=== PATIENT | female | born 1960 | race Caucasian/White ===

== ENCOUNTER → 2017-07-18 16:40 | Outpatient (CLI) | payer OTHER, SELFPAY ==
--- NOTE | 2017-07-18 16:45 | RAD_ITS ---
STUDY: X-RAY - LEFT HAND, ATTENTION SECOND FINGER REASON FOR EXAM: Female, 56 years old. Mucinous cyst TECHNIQUE: view(s) of the finger were obtained. COMPARISON: None. FINDINGS: Normal metacarpal head. Normal metacarpophalangeal joint. Normal proximal phalanx. Normal middle phalanx. Normal distal phalanx. Normal proximal interphalangeal joint. Normal distal interphalangeal joint. RAD/Finger(s) Min 2 Views IMPRESSION: Normal x-ray examination of the finger. Electronically Signed: Curtis Metzger DO at 21:34 EST Tel [phone], Service support ,
== END ==
PROVIDERS: Family Provider Family Medicine; PCP Family Medicine; Visit Provider Surgery
DX: M67.442 Ganglion, left hand (principal)
CPT/HCPCS: 73140

== ENCOUNTER 2017-08-01 06:24 | Day surgery (SDC) | payer OTHER, SELFPAY ==
--- NOTE | 2017-07-31 16:07 | PCM.HP.BLA ---
History and Physical Date of Admission: 08/01/17 HISTORY OF PRESENT ILLNESS 56 year old woman presents with a soft tissue mass on her left index finger at the DIP joint that has increased in size over the last several months and has become more raised in configuration. It is clinically consistent with a mucous cyst. She denies any trauma. She denies any fever. She denies any numbness. She denies any drainage or recent infection. There is some discomfort when she bumps it. PAST MEDICAL HISTORY Negative. PAST SURGICAL HISTORY . MEDICATIONS Estradiol. Medroxyprogesterone. ALLERGIES Augmentin. SOCIAL HISTORY Patient does not smoke. Patient does not drink alcohol. FAMILY HISTORY Arthritis - Father. Hypertension - Father and Mother. Lung cancer - Mother. Skin cancer - Father. Stroke - Father. Thyroid disease - Mother. REVIEW OF SYSTEMS General - Denies fever, fatigue, and weight loss. ENT - Denies nasal congestion and sore throat. Eyes - Denies cataracts and glaucoma. Endocrine - Denies excessive thirst and urination. Skin - Has family history of skin cancer. Has enlarging mucous cyst ulnar aspect DIP joint left index finger. Musculoskeletal - Denies joint pain, joint stiffness, weakness of muscles and joints, back pain, and arthritis. Has enlarging mucous cyst ulnar aspect DIP joint left index finger. Neuro - Denies headaches. Cardiovascular - Denies chest pain, shortness of breath with exertion, and fatigue. Psych - Denies anxiety and depression. Respiratory - Denies shortness of breath and cough. Gastrointestinal - Denies nausea, vomiting, diarrhea. Has constipation. Hematologic - Denies abnormal bruising and bleeding. Genitourinary - Denies hematuria and urinary frequency. PHYSICAL EXAMINATION General - Alert and oriented. HEENT - PERRL. EOMI. Throat is clear. Neck - Supple and nontender. No cervical adenopathy. Lungs - Clear to auscultation. Heart - Regular rate and rhythm. Abdomen - Soft and nondistended. Extremities - FROM. Radial pulses are palpable. No axillary adenopathy. On the ulnar aspect DIP joint left index finger is a 7 mm soft tissue mass, (mucous cyst), that is raised in configuration. Overlying skin is thin. No evidence of infection. No nail grooving seen. Flexion and extension intact at DIP joint left index finger. Fingers are warm with good capillary refill. Neuro - CN II - XII grossly intact. ASSESSMENT 1. 7 mm mucous cyst ulnar aspect DIP joint left index finger. 2. Family history of skin cancer. PLAN Xray showed no bony abnormalities. Recommend excision of this mucous cyst which can be done under [facility] anesthesia on an outpatient basis. Sometimes the cyst extends between the extensor tendon and the bone. Usually a bony spur is present which will be excised to minimize recurrence. Will send tissue to Pathology for analysis to rule out carcinoma. Doubt I will be able to close the wound primarily as the overlying skin is thin and will be excised. Cannot place a skin graft over exposed bone and tendon. So an advancement skin flap from the dorsal aspect of the skin of the finger will be used for reconstruction. Depending on how much retraction is necessary on the extensor tendon to get exposure to the rest of the mucous cyst, a short term use of a splint keeping the DIP joint in extension is necessary to minimize possible rupture of the tendon over the next several weeks. Depending on the amount of stiffness after the surgery, OT may be necessary to help with range of motion exercises to minimize stiffness. Patient was informed of the risks and complications of the procedure including alternatives to surgery. These were discussed with her personally. She voices understanding and wishes to proceed. Some of the risks and complications were included in a form from the [employer]. Some of the risks that were discussed included but were not inclusive of failure to diagnose including symptom relief, pain, infection, numbness, stiffness, loss of digit, RSD, need for further surgery, contracture and wound healing problems.
--- NOTE | 2017-08-01 | CYST_PTH ---
PATIENT: FRANCO [place] [facility] [place][id number] AGE/SX: 56/F ROOM: RE08/01/[address]: Dr. Eugenio Montilla MD : 1960 BED: DIS: 08/01/2017 SPEC #: [id number] RECD: 08/01/17 10:39 STATUS: JC PA #: [id number] MOOSE: 08/01/17 00:[address]: Eugenio Montilla DEPT: SURGICAL PATHOLOGY RECD BY: Arturo Ervin ENTERED: 08/01/17 10:39 SP TYPE: Cyst OTHR DR: Dr. Alex Richardson DO Tissues: Finger, NOS Procedures: Surgery Specimen Level IV HEADER OPERATION: Excision, mucous cyst, index finger with skin flap reconstruction PRE-OP DIAGNOSIS: Mucous cyst left index finger TISSUE SUBMITTED: Mucous cyst left index finger MICROSCOPIC DIAGNOSIS Mucous cyst of left index finger, excision: Benign fibrous wall cyst. Skin with hyperkeratosis. Fragments of hyaline cartilage with no pathologic change. AM:olya 08/02/17 COMMENT Case has been reviewed in consultation with Dr. Burgess who concurs with the above diagnosis. IDC:BELL MICROSCOPIC DESCRIPTION Slides are reviewed. GROSS DESCRIPTION Received in fixative is one container labeled with the patient's name and designated mucous cyst left index finger. The specimen consists of a piece of skin measuring 1.5 x 0.5 x 0.3 cm. The skin piece is bisected and shows a cyst measuring 0.4 cm in greatest dimension. Also present in the container are multiple fragments of mucoid tissue measuring in aggregate 1 x 0.5 x 0.2 cm. The entire specimen is submitted in one cassette. / BELL:olya 08/01/17 TC:5 CPT: 65239
[2017-08-01 06:44] VITALS: BP 142/78; PULSE 76; RESP 16; TEMP 36.5; O2SAT 100; BMI 23.0
[2017-08-01] MEDS: Cefazolin 2 GM in 0.9% Normal Saline 100 ML IV (08:06)
[2017-08-01] MEDS: Mupirocin Ointment 22gm Tube 1 APPLIC (09:11)
--- NOTE | 2017-08-01 09:21 | OP.PN_ITS ---
Immediate Post-Op Note Date of Procedure: 08/01/17 Primary Surgeon/Physician: Eugenio Montilla electrical design technician: None Pre-Operative Diagnosis: 1. 7 mm mucous cyst ulnar aspect DIP joint left index finger. 2. Family history of skin cancer. Post-Operative Diagnosis: 1. 7 mm mucous cyst ulnar aspect DIP joint left index finger. 2. 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 3. Family history of skin cancer. Surgery/Procedure Performed:: 1. Excision 7 mm mucous cyst ulnar aspect DIP joint left index finger with dorsal advancement skin flap reconstruction (7.5 cm2). 2. Complex repair extensor tendon distal insertion attenuation mallet deformity (zone 1) with ulnar lateral band segmental tendon turnover flap graft reconstruction and extension splinting. Description of Surgical Findings:: 56 year old woman presents with a soft tissue mass on her left index finger at the DIP joint that has increased in size over the last several months and has become more raised in configuration. It is clinically consistent with a mucous cyst. She denies any trauma. She denies any fever. She denies any numbness. She denies any drainage or recent infection. There is some discomfort when she bumps it. It was noted that during the surgery, the patient had an extensor tendon distal insertion attenuation mallet deformity (zone 1) left index finger secondary to pressure from the mucous cyst. Today the patient underwent excision 7 mm mucous cyst ulnar aspect DIP joint left index finger with dorsal advancement skin flap reconstruction (7.5 cm2) and complex repair extensor tendon distal insertion attenuation mallet deformity (zone 1) with ulnar lateral band segmental tendon turnover flap graft reconstruction and extension splinting. There was an extensor tendon distal insertion attenuation mallet deformity ( zone 1) left index finger secondary to pressure from the mucous cyst. Total tourniquet time - 41 minutes. Estimated Blood Loss: 2 ml. Specimen's removed: Mucous cyst ulnar lateral DIP joint left index finger to Pathology. Drains: None. Type of Anesthesia:: Local MAC - Xylocaine with epinephrine digital metacarpal block and IV sedation. - Admit VTE Documentation VTE Present on Admission: No VTE Mechan Device Prophylaxis: SCD's VTE Pharm Prophylaxis ordered?: No
[2017-08-01 09:26] VITALS: BP 109/66; BP 142/78; PULSE 84; RESP 16; TEMP 36.2; O2SAT 95
[2017-08-01 09:31] VITALS: BP 109/70; BP 142/78; PULSE 80; RESP 16; O2SAT 96
--- NOTE | 2017-08-01 09:32 | PCM.DC ---
You will use the following diet at home:: No restrictions Discharge Activity: May not drive while taking narcotic pain medications., May Shower - wear plastic bag over left hand when showering., - - elevate left hand. no lifting with left hand. May shower in (days): 1 - wear plastic bag over left hand when showering. May resume sexual activity in: No Restrictions Weight Bearing Status: Weight bearing as tolerated Lifting Restrictions: no lifting with left hand. Keep extremity elevated above heart level: Left Arm Call your doctor if your incision/area has: Continuous Slow Oozing, Sudden Increased Bleeding, Increased Pain/ Swelling, Increased Redness, Foul Smelling Discharge, Swelling at the incision site Call your doctor if you observe: Fever of 101 or Higher, Coldness, Increased Pain, Shortness of breath, Chest pain, Calf discomfort, Uncontrolled pain Suture Line Care: - - after dressing removed in the office, apply antibiotic ointment to suture line daily. Remove Dressing in (days):: 7 - will remove dressing in office. Cleanse incision/area with: - - wear plastic bag over left hand when showering. Additional Instructions: Will set up appointment with OT for a silastic splint and after tendon healing, range of motion exercises, strengthening, and edema managment. Allergies/Adverse Reactions: Allergies amoxicillin [From Augmentin] Adverse Reaction (Verified 07/25/17 08:25) Nausea/Vom/Diarrhea clavulanic acid [From Augmentin] Adverse Reaction (Verified 07/25/17 08:25) Nausea/Vom/Diarrhea Medications to take at Discharge estradiol 0.5 mg tablet 0.5 mg PO QODAY 07/01/17 medroxyprogesterone 2.5 mg tablet 2.5 mg PO QODAY 07/01/17 Mv-Min/Iron/Folic/Calcium/Vitk [Women's Daily Formula Tablet] 1 each PO DAILY 07/25/17 Clindamycin HCl [Cleocin] 300 mg PO TID #15 cap 08/01/17 Oxycodone HCl/Acetaminophen [Percocet 5/325] 1 - 2 tab PO 4X/DAY PRN PRN 5 Days #40 tab 08/01/17 The following prescriptions were given: Oxycodone HCl/Acetaminophen [Percocet 5/325] 1 - 2 tab PO 4X/DAY PRN PRN 5 Days #40 tab PRN Reason: Pain Clindamycin HCl [Cleocin] 300 mg PO TID #15 cap Primary Care Physician: Alex Richardson DO [Primary Care Provider] - Please Follow Up With: Eugenio Montilla MD When: one week. call [phone] for appt. Please Follow Up With: occupational therapy When: one week. will call for appt for a silastic splint. Proposed Discharge Date: 08/01/17
[2017-08-01 09:36] VITALS: BP 109/65; BP 142/78; PULSE 74; RESP 16; O2SAT 96
[2017-08-01 09:41] VITALS: BP 109/67; BP 142/78; PULSE 80; RESP 16; TEMP 36.7; O2SAT 96
--- NOTE | 2017-08-01 09:43 | DCINST_ITS ---
You will use the following diet at home:: No restrictions Discharge Activity: May not drive while taking narcotic pain medications., May Shower - wear plastic bag over left hand when showering., - - elevate left hand. no lifting with left hand. May shower in (days): 1 - wear plastic bag over left hand when showering. May resume sexual activity in: No Restrictions Weight Bearing Status: Weight bearing as tolerated Lifting Restrictions: no lifting with left hand. Keep extremity elevated above heart level: Left Arm Call your doctor if your incision/area has: Continuous Slow Oozing, Sudden Increased Bleeding, Increased Pain/ Swelling, Increased Redness, Foul Smelling Discharge, Swelling at the incision site Call your doctor if you observe: Fever of 101 or Higher, Coldness, Increased Pain, Shortness of breath, Chest pain, Calf discomfort, Uncontrolled pain Suture Line Care: - - after dressing removed in the office, apply antibiotic ointment to suture line daily. Remove Dressing in (days):: 7 - will remove dressing in office. Cleanse incision/area with: - - wear plastic bag over left hand when showering. Additional Instructions: Will set up appointment with OT for a silastic splint and after tendon healing, range of motion exercises, strengthening, and edema managment. Allergies/Adverse Reactions: Allergies amoxicillin [From Augmentin] Adverse Reaction (Verified 07/25/17 08:25) Nausea/Vom/Diarrhea clavulanic acid [From Augmentin] Adverse Reaction (Verified 07/25/17 08:25) Nausea/Vom/Diarrhea Medications to take at Discharge estradiol 0.5 mg tablet 0.5 mg PO QODAY 07/01/17 medroxyprogesterone 2.5 mg tablet 2.5 mg PO QODAY 07/01/17 Mv-Min/Iron/Folic/Calcium/Vitk [Women's Daily Formula Tablet] 1 each PO DAILY Clindamycin HCl [Cleocin] 300 mg PO TID #15 cap 08/01/17 Oxycodone HCl/Acetaminophen [Percocet 5/325] 1 - 2 tab PO 4X/DAY PRN PRN 5 Days #40 tab 08/01/17 The following prescriptions were given: Oxycodone HCl/Acetaminophen [Percocet 5/325] 1 - 2 tab PO 4X/DAY PRN PRN 5 Days #40 tab PRN Reason: Pain Clindamycin HCl [Cleocin] 300 mg PO TID #15 cap Primary Care Physician: Alex Richardson DO [Primary Care Provider] - Please Follow Up With: Eugenio Montilla MD When: one week. call [phone] for appt. Please Follow Up With: occupational therapy When: one week. will call for appt for a silastic splint. Proposed Discharge Date: 08/01/17
[2017-08-01 10:58] VITALS: BP 142/78
--- NOTE | 2017-08-01 16:55 | PCM.OPRPT ---
Report of Operation Date of Procedure: 08/01/17 Pre-Operative Diagnosis: 1. 7 mm mucous cyst ulnar aspect DIP joint left index finger. 2. Family history of skin cancer. Post-Operative Diagnosis: 1. 7 mm mucous cyst ulnar aspect DIP joint left index finger. 2. 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 3. Family history of skin cancer. Surgery/Procedure Performed:: 1. Excision 7 mm mucous cyst ulnar aspect DIP joint left index finger with dorsal advancement skin flap reconstruction (7.5 cm2). 2. Complex repair extensor tendon distal insertion attenuation mallet deformity (zone 1) with ulnar lateral band segmental tendon turnover flap graft reconstruction and extension splinting. Description of Surgical Findings:: 56 year old woman presents with a soft tissue mass on her left index finger at the DIP joint that has increased in size over the last several months and has become more raised in configuration. It is clinically consistent with a mucous cyst. She denies any trauma. She denies any fever. She denies any numbness. She denies any drainage or recent infection. There is some discomfort when she bumps it. Patient was informed of the risks and complications of the procedure including alternatives to surgery. These were discussed with her personally. She voices understanding and wishes to proceed. Some of the risks and complications were included in a form from the [employer]. Some of the risks that were discussed included but were not inclusive of failure to diagnose including symptom relief, pain, infection, numbness, stiffness, loss of digit, RSD, need for further surgery, contracture and wound healing problems. There was an extensor tendon distal insertion attenuation mallet deformity (zone 1) left index finger secondary to pressure from the mucous cyst. Total tourniquet time - 41 minutes. crucible packer: None Type of Anesthesia:: Local MAC - Xylocaine with epinephrine digital metacarpal block and IV sedation. Specimen's removed: Mucous cyst ulnar lateral DIP joint left index finger to Pathology. Drains: None. Estimated Blood Loss (mL): 2 ml. Description of Procedure: The patient was taken to the operating room and in the supine position, she was given IV sedation and her left hand and forearm were prepped and draped in usual fashion. SCDs were placed for DVT prophylaxis. Perioperative antibiotics were given intravenously. Using xylocaine with epinephrine, a local digital metacarpal block was administered to the left index finger. After waiting 5 minutes for the anesthetic to take effect, a tourniquet was applied to the base of the left index finger. I made a circular incision around the mucous cyst which was slightly firm. The overlying skin was quite thin which was excised as well. I extended the incision horizontally toward the radial side of the finger. I dissected the mucous cyst down to the bone on the ulnar aspect. It was excised and sent to Pathology for analysis to rule out carcinoma. There was a small bony spur present and a rongeur was used to remove this small spur which will help minimize recurrence. Due to the pressure from the mucous cyst, there was an extensor tendon distal insertion attenuation mallet deformity (zone 1), mostly on the ulnar side. There was a small area of tendon remaining on the distal phalanx. There was a small tendon gap on the ulnar aspect probably from pressure of the mucous cyst on the underlying tendon. To repair the ulnar tendon gap, I created a lateral band segmental tendon turnover flap to be used as a tendon graft for the reconstruction. I extended the incision down the dorsal ulnar aspect of the finger and dissected down to the extensor tendon to get exposure for the lateral band segmental tendon turnover flap graft. This would provide me with the necessary additional tendon length to obtain tendon continuity on the ulnar side. This was done and repaired using a 4-0 nylon [id number] interrupted sutures. The PIP joint was not involved as I was able to extend and flex the PIP joint without difficulty. After the dorsal skin flap was elevated, it was advanced distally into the mucous cyst defect. The incisions were closed with 5-0 Prolene simple interrupted and vertical mattress interrupted sutures. The size of the flap used to close the defect was 1.5 x 5 cm or 7.5 cm2. During the closure of the skin flap, I released the tourniquet after 41 minutes. Hemostasis obtained with light electrocautery and elevation and gentle pressure. No vascular compromise noted on the skin flap after release of the tourniquet. After closure of the skin flap, I applied antibiotic ointment to the incision followed by Xeroform gauze and 2x2 gauze. An aluminum extension splint was applied to the DIP joint and covered with a 2 inch Liya wrap. Patient tolerated the procedure well and was sent to PACU in satisfactory condition. She will be sent home on antibiotics and pain medication. She will keep her left hand elevated during the initial postop period. She will followup in a week for a wound check and discussion of the Pathology report. Will set her up with OT for a silastic extension splint and for eventual range of motion exercises, strengthening, and edema management. Will remove her sutures in 2 weeks. Grafts/Implants Used: Aluminum extension splint at DIP joint. - Complications None. - Admit VTE Documentation VTE Present on Admission: No VTE Mechan Device Prophylaxis: SCD's VTE Pharm Prophylaxis ordered?: No Code Visit Surgery Charges CPT - 85491 ICD-10 - M67.442, S61.402A, M20.012 72455 S61.402A, M67.442, M20.012 52202 M20.012, S61.402A, M67.442
--- NOTE | 2017-08-02 16:55 | OP.PCM_ITS ---
Report of Operation Date of Procedure: 08/01/17 Pre-Operative Diagnosis: 1. 7 mm mucous cyst ulnar aspect DIP joint left index finger. 2. Family history of skin cancer. Post-Operative Diagnosis: 1. 7 mm mucous cyst ulnar aspect DIP joint left index finger. 2. 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 3. Family history of skin cancer. Surgery/Procedure Performed:: 1. Excision 7 mm mucous cyst ulnar aspect DIP joint left index finger with dorsal advancement skin flap reconstruction (7.5 cm2). 2. Complex repair extensor tendon distal insertion attenuation mallet deformity (zone 1) with ulnar lateral band segmental tendon turnover flap graft reconstruction and extension splinting. Description of Surgical Findings:: 56 year old woman presents with a soft tissue mass on her left index finger at the DIP joint that has increased in size over the last several months and has become more raised in configuration. It is clinically consistent with a mucous cyst. She denies any trauma. She denies any fever. She denies any numbness. She denies any drainage or recent infection. There is some discomfort when she bumps it. Patient was informed of the risks and complications of the procedure including alternatives to surgery. These were discussed with her personally. She voices understanding and wishes to proceed. Some of the risks and complications were included in a form from the [employer]. Some of the risks that were discussed included but were not inclusive of failure to diagnose including symptom relief, pain, infection, numbness, stiffness, loss of digit, RSD, need for further surgery, contracture and wound healing problems. There was an extensor tendon distal insertion attenuation mallet deformity ( zone 1) left index finger secondary to pressure from the mucous cyst. Total tourniquet time - 41 minutes. loft worker pile driving: None Type of Anesthesia:: Local MAC - Xylocaine with epinephrine digital metacarpal block and IV sedation. Specimen's removed: Mucous cyst ulnar lateral DIP joint left index finger to Pathology. Drains: None. Estimated Blood Loss (mL): 2 ml. Description of Procedure: The patient was taken to the operating room and in the supine position, she was given IV sedation and her left hand and forearm were prepped and draped in usual fashion. SCDs were placed for DVT prophylaxis. Perioperative antibiotics were given intravenously. Using xylocaine with epinephrine, a local digital metacarpal block was administered to the left index finger. After waiting 5 minutes for the anesthetic to take effect, a tourniquet was applied to the base of the left index finger. I made a circular incision around the mucous cyst which was slightly firm. The overlying skin was quite thin which was excised as well. I extended the incision horizontally toward the radial side of the finger. I dissected the mucous cyst down to the bone on the ulnar aspect. It was excised and sent to Pathology for analysis to rule out carcinoma. There was a small bony spur present and a rongeur was used to remove this small spur which will help minimize recurrence. Due to the pressure from the mucous cyst, there was an extensor tendon distal insertion attenuation mallet deformity (zone 1), mostly on the ulnar side. There was a small area of tendon remaining on the distal phalanx. There was a small tendon gap on the ulnar aspect probably from pressure of the mucous cyst on the underlying tendon. To repair the ulnar tendon gap, I created a lateral band segmental tendon turnover flap to be used as a tendon graft for the reconstruction. I extended the incision down the dorsal ulnar aspect of the finger and dissected down to the extensor tendon to get exposure for the lateral band segmental tendon turnover flap graft. This would provide me with the necessary additional tendon length to obtain tendon continuity on the ulnar side. This was done and repaired using a 4-0 nylon [id number] interrupted sutures. The PIP joint was not involved as I was able to extend and flex the PIP joint without difficulty. After the dorsal skin flap was elevated, it was advanced distally into the mucous cyst defect. The incisions were closed with 5-0 Prolene simple interrupted and vertical mattress interrupted sutures. The size of the flap used to close the defect was 1.5 x 5 cm or 7.5 cm2. During the closure of the skin flap, I released the tourniquet after 41 minutes. Hemostasis obtained with light electrocautery and elevation and gentle pressure. No vascular compromise noted on the skin flap after release of the tourniquet. After closure of the skin flap, I applied antibiotic ointment to the incision followed by Xeroform gauze and 2x2 gauze. An aluminum extension splint was applied to the DIP joint and covered with a 2 inch Liya wrap. Patient tolerated the procedure well and was sent to PACU in satisfactory condition. She will be sent home on antibiotics and pain medication. She will keep her left hand elevated during the initial postop period. She will followup in a week for a wound check and discussion of the Pathology report. Will set her up with OT for a silastic extension splint and for eventual range of motion exercises, strengthening, and edema management. Will remove her sutures in 2 weeks. Grafts/Implants Used: Aluminum extension splint at DIP joint. - Complications None. - Admit VTE Documentation VTE Present on Admission: No VTE Mechan Device Prophylaxis: SCD's VTE Pharm Prophylaxis ordered?: No Code Visit Surgery Charges CPT - 07533 ICD-10 - M67.442, S61.402A, M20.012 82799 S61.402A, M67.442, M20.012 41484 M20.012, S61.402A, M67.442
== END 2017-08-01 11:38 | disposition home or self-care (01) ==
LOC: SDC 06:25 → AC 06:26
PROVIDERS: Family Provider Student in an Organized Health Care Education/Training Program; PCP Student in an Organized Health Care Education/Training Program; Visit Provider Surgery
PROC: (CPT 14040; principal; 2017-08-01 07:50)
DX: M67.442 Ganglion, left hand (principal); M20.012 Mallet finger of left finger(s); M25.742 Osteophyte, left hand; Z80.8 Family history of malignant neoplasm of other organs or systems
CPT/HCPCS: 14040; 26160; 26434; 64450; 88304; 88305; J7120

== ENCOUNTER 2017-11-14 14:00 | Outpatient (RCR) | payer OTHER, SELFPAY ==
--- NOTE | 2017-08-07 11:29 | HP.OTEVAL_ITS ---
Patient's Visit Information FRANCO HI is a 56 year old F, referred to Occupational Therapy by Eugenio Montilla DR.JSMAL, with a diagnosis of Cyst left IF. Date of Evaluation: 08/06/17 Occupational Therapist: Sabina Reveles, AYAAN/Renetta, CHT - Subjective Subjective: pt states she had a cyst- removed on 08-01-17. pt states the cyst has been there for greater than 3 months. pt states she is attempting to stay up with her pain medication- pt states stitches will be removed this week. pt state she is not using her hand much as she is attempting to keep her MF protected while peforming BADLS and IALDS - Pain left IF 4 Pain Intensity Range: 1, 8 - ROM MP: right IF 0/85 left 0/60 PIP: right IF 0/105 left 0/0 painful DIP: right IF 0/55 left not tested - Strength Strength Comments: will test at later date - Goals Goal:100% adherence to protocol: Yes Comment: Zone 1 Goal:Daily scar massage when approriate: Yes Goal:ROM equal to unaffected hand: Yes Goal:Health Outcomes Liaison/Pinch strength at least 75% of unaffected hand: Yes Goal:No pain with affected hand use: Yes Goal:PIP Circumferences equal to unaffected hand: Yes Goal:Full use of affected hand in daily activities including: Yes Goal:Decrease scar hypersensitivity: Yes - Rehabilitation General Assessment: pt had a mucous cyst ulnar aspect DIP joint left IF. Extensor tendon repair zone 1 will follow protocol. pt demo reluctent to move PIP with stitches- pt ed on scar mtg and need to initiate AROM to follow protocol 0 Rehabilitation Potential: Good - Anticipated Interventions Anticipated Interventions: A/AAROM/PROM, Strengthening, Edema Control, Scar Care , Triggerpoint Release, Desensitization, Sensory Retraining, Wound Care, Modalities, Orthoses - Visit Plan Frequency: 1-2x /Week Duration: 2 Months TEXT: Thank you for the opportunity to evaluate your patient. For Medicare and Medicare HMO plans, please review the plan of care and approve it. It will need to be FAXED BACK to us at [phone] for Medicare purposes. Please let me know if there are questions or concerns regarding this plan of care. Physician Signature: Date:
--- NOTE | 2018-01-22 09:03 | HP.OTDCNRP_ITS ---
HP - Discharge Summary - Patient Information FRANCO HI was seen in my office for initial evaluation on 08/06/17. The following Plan of Care was established for this patient: Initial Frequency: 1-2x /Week Initial Duration: 2 Months Plan: cont tx - Anticipated Interventions Anticipated Interventions: A/AAROM/PROM, Strengthening, Edema Control, Scar Care , Triggerpoint Release, Desensitization, Sensory Retraining, Wound Care, Modalities, Orthoses This patient was last seen in our office 11/14/17. Pertinent comments regarding their Occupational therapy will appear below: pt was seen 9 OT visits. pt was progressing with her ROM but still very limited at her last apt. to has not scheduled any further apts and due to timelapse in tx pt d/c at this time. At this point I will be discontinuing this patient from occupational therapy. I would be happy to see this patient again in the future if found appropriate by the physician. Thank you! Sabina Reveles, OTR/L, CHT
== END 2017-11-14 19:00 | disposition home or self-care (01) ==
LOC: OT 14:00
PROVIDERS: Family Provider Student in an Organized Health Care Education/Training Program; PCP Student in an Organized Health Care Education/Training Program; Visit Provider Surgery
DX: M67.422 Ganglion, left elbow (principal); M20.012 Mallet finger of left finger(s)
CPT/HCPCS: 97110; 97140; 97166; 97530; 97763